=== PATIENT | male | born 1990 | race Caucasian/White ===

== ENCOUNTER 2025-02-28 18:55 | Emergency (ER) | payer MEDICAID, OTHER ==
[~2025-02-28] VITALS: Ht 182.9 cm; Wt 99.8 kg
[2025-02-28] MEDS ORDERED: ONDANSETRON HCL/PF 4 MG/2 ML VIAL ONE (19:34)
[2025-02-28] MEDS: ONDANSETRON HCL/PF 4 MG/2 ML VIAL IVP ONE (19:36)
[2025-02-28] MEDS: IV NS 0.9% 1,000 ML BAG IV ONE ×2 (19:36→20:29)
[2025-02-28 19:54] LABS: PLATELET COUNT (AUTO) 261 K/uL (150-450); RED BLOOD CELL COUNT(AUTO) 5.77 MIL/uL (4.5-6.0); RED CELL DISTRIBUTION WIDTH 13.8 % (11.5-15.0); WHITE BLOOD COUNT (AUTO) 15.4 K/uL (4.3-11.0)
[2025-02-28 20:17] LABS: CALCIUM, SERUM 9.8 mg/dL (8.5-10.1); CREATININE 1.4 mg/dL (0.6-1.3); SODIUM SERUM 142.0 mmol/L (136-145); UREA NITROGEN, BLOOD 16.0 mg/dL (7-18)
[2025-02-28 20:21] LABS: ASPARTATE AMINOTRANSFERASE 25.0 U/L (15-37); TOTAL PROTEIN, SERUM 8.4 g/dL (6.4-8.2)
[2025-02-28 21:11] LABS: APPEARANCE,URINE CLEAR (CLEAR); BLOOD, URINE NEGATIVE Ery/uL (NEGATIVE); LEUKOCYTE ESTERASE ,URINE NEGATIVE (NEGATIVE); NITRITE, URINE NEGATIVE (NEGATIVE); UGLUCOSE NEGATIVE (NEGATIVE)
[2025-02-28] MEDS ORDERED: ONDA4TAB5 PO (21:24)
[2025-02-28 21:28] LABS: ADD URINE CULTURE YES; SQUAMOUS EPITHELIAL CELL,UR Rare /HPF (None Seen)
[2025-02-28 21:35] VITALS: BP 115/81; TEMP 98; O2SAT 98
== END 2025-02-28 21:35 | disposition home or self-care (01) ==
LOC: EDBD 19:07 → ER 19:07
DX: A08.4 Viral intestinal infection, unspecified (principal); R53.1 Weakness; R11.2 Nausea with vomiting, unspecified; F41.9 Anxiety disorder, unspecified; Z91.048 Other nonmedicinal substance allergy status
CPT/HCPCS: 99283; 96374; 96361; 85025; 80048; 87086; 83690; 80076; 81001; 36415; J2405; J7030